=== PATIENT | female | born 1985 | race Caucasian/White ===

== ENCOUNTER 2018-07-23 08:14 | Emergency (ER) | payer BC, OTHER ==
[2018-07-23] MEDS ORDERED: Albuterol/Ipratropium NEB.SOL* Albuterol 2.5 MG/Ipratropium 0.5 MG 3 ML INH ONE (08:27)
[2018-07-23] MEDS ORDERED: Albuterol/Ipratropium NEB.SOL* Albuterol 2.5 MG/Ipratropium 0.5 MG 3 ML ONE (08:27)
[2018-07-23 08:31] VITALS: BP 153/70
--- NOTE | 2018-07-23 08:33 | PN ---
Progress Note - Progress Note Date of Service: 07/23/18 Note: pt presents to the ED for evaluation of her chest pain and shortness of breath which started yesterday. on exam, she is tachycardic, tachypneic, and has wheezing to left anterior lung lewis. ekg shows sinus tachycardia. I ordered a duoneb. I called [facility] and spoke to Kimberley Reid NP. She is aware of pt's condition and my concerns. Pt deferred an ambulance ride. she will call her mother to take her. Pt did drive herself to the .
--- NOTE | 2018-07-30 11:39 | UC ---
UC General HPI - HPI Summary HPI Summary: pt presents to the ED for evaluation of her chest pain and shortness of breath which started yesterday. - History of Current Complaint Chief Complaint: UCChestPain Stated Complaint: SORE THROAT SHORTNESS OF BREATH Hx Obtained From: Patient Hx Last Menstrual Period: DOES NOT HAVE REG PERIODS Onset/Duration: Gradual Onset Onset Severity: Moderate Current Severity: Moderate Pain Intensity: 3 Associated Signs & Symptoms: Positive: Chest Pain, SOB - Allergy/Home Medications Allergies/Adverse Reactions: Allergies Allergy/AdvReac Type Severity Reaction Status Date / Time Amoxicillin [Amoxicillin] Allergy Severe Difficulty Verified 07/23/18 08:24 Breathing Home Medications: Home Medications NK [No Home Medications Reported] 07/23/18 [History Confirmed 07/23/18] PMH/Surg Hx/FS Hx/Imm Hx Previously Healthy: Yes - Surgical History Surgical History: Yes Surgery Procedure, Year, and Place: wisdom teeth. D&C - Family History Known Family History: Positive: Cardiac Disease - maternal grandfather, Hypertension - father - Social History Alcohol Use: Occasionally Substance Use Type: None Smoking Status (MU): Former Smoker Type: Cigarettes - Immunization History Hx Tetanus, Diphtheria Vaccination: Yes - seven years ago Vaccination Up to Date: No Review of Systems All Other Systems Reviewed And Are Negative: No Constitutional: Negative: Fever ENT: Positive: Sore Throat Respiratory: Positive: Shortness Of Breath Cardiovascular: Positive: Chest Pain Gastrointestinal: Negative: Abdominal Pain Genitourinary: Negative: Hematuria Musculoskeletal: Negative: Arthralgia Is Patient Immunocompromised?: No Physical Exam Triage Information Reviewed: Yes Appearance: Ill-Appearing Vital Signs: Initial Vital Signs Temp 97.8 F 07/23/18 08:25 Pulse 118 07/23/18 08:25 Resp 20 07/23/18 08:25 BP 153/70 07/23/18 08:25 Pulse Ox 96 07/23/18 08:25 Vital Signs Reviewed: Yes Eyes: Positive: Conjunctiva Clear Respiratory: Positive: Other: - diminished breath sounds Cardiovascular: Positive: Tachycardia, Other: - irregular Abdomen Description: Positive: Nontender, Soft Bowel Sounds: Positive: Present Musculoskeletal: Positive: Strength Intact Neurological: Positive: Alert Course/Dx - Course Course Of Treatment: pt presents to the ED for evaluation of her chest pain and shortness of breath which started yesterday. on exam, she is tachycardic, tachypneic, and has wheezing to left anterior lung lewis. ekg shows sinus tachycardia. I ordered a duoneb. I called [facility] and spoke to Kimberley Reid NP. She is aware of pt's condition and my concerns. Pt deferred an ambulance ride. she will call her mother to take her. Pt did drive herself to the . I am concerned about PE, CHF, Pneumonia, ACS. Patient was seen on at approximately 08:30 - Diagnoses Provider Diagnosis: Dyspnea, Chest pain Discharge - Sign-Out/Discharge Documenting (check all that apply): Patient Departure All imaging exams completed and their final reports reviewed: No Studies - Discharge Plan Condition: Stable Disposition: HOME-RECOMMEND TO ED Patient Education Materials: Dyspnea (ED) Referrals: No Primary Care Phys,NOPCP [Primary Care Provider] - Additional Instructions: go to the [facility] emergency dept immediately upon discharge form the Urgent Care. - Billing Disposition and Condition Condition: STABLE Disposition: Home-Recommend to ED
== END 2018-07-23 08:57 | disposition home health service (06) ==
LOC: UCCORT 08:14
DX: R07.89 Other chest pain (principal); R06.02 Shortness of breath; R00.0 Tachycardia, unspecified; Z88.0 Allergy status to penicillin; Z82.49 Family history of ischemic heart disease and other diseases of the circulatory system; Z87.891 Personal history of nicotine dependence
CPT/HCPCS: 93005; 99212; A9270-GY; G0463